=== PATIENT | female | born 1945 | race Caucasian/White ===

== ENCOUNTER → 2017-05-22 | Outpatient (CLI) | payer MEDICARE, OTHER ==
[~2017-05-22] MED LIST: ACEB200C PO; ALEN70TA47 PO; ATOR40TA70 PO; CHOL100061 PO; LISI1TAB6 PO; POTA99TA15 PO; ZINC50TA49 PO
--- NOTE | 2017-05-22 19:39 | Diagnostic Imaging Report ---
Bilateral screening mammogram 2D views with tomosynthesis The current study was also evaluated with a Computer Aided Detection (CAD) system. Indication: Screening. No current complaints stated on the questionnaire. COMPARISON: 05/20/16 FINDINGS: The breasts are composed of scattered fibroglandular densities. There is a stable nodule in the inferior aspect of the left breast from multiple prior exams. Similarly stable nodule in the inferior aspect of the right breast is also seen. Allowing for technique and positional differences, no suspicious change is seen. IMPRESSION: No significant change. ACR BI-RADS Category 2: Benign findings. Result letter will be mailed to the patient. Note: At least 10% of breast cancer is not imaged by mammography. Dictated by: Dictated on workstation # [id number]
== END ==
LOC: RAD 09:58
PROVIDERS: ATTEND Internal Medicine
DX: Z12.31 Encounter for screening mammogram for malignant neoplasm of breast (principal)
CPT/HCPCS: 77067

== ENCOUNTER → 2017-07-04 | Outpatient (CLI) | payer MEDICARE, OTHER ==
[~2017-07-04] MED LIST changes: +GADOBUTROL 7.5 MMOL/7.5 ML (GADAVIST) VIAL IV ONE
[2017-07-04 11:02] LABS: BLOOD UREA NITROGEN 11 MG/DL (7-18); BUN/CREATININE RATIO 14; CREATININE SERUM 0.79 MG/DL (0.60-1.30); GFR ESTIMATED > 60
--- NOTE | 2017-07-04 14:59 | Diagnostic Imaging Report ---
EXAMINATION: Multiplanar, multisequence MRI of the brain and orbits performed without and with intravenous contrast. INDICATION: Vision loss. 7 mL of Omnipaque 350 is administered intravenously. FINDINGS: There is no diffusion restriction to suggest an acute infarct or other diffusion abnormality. The brain parenchyma demonstrate mild periventricular and deep white matter T2 hyperintense signal abnormality compatible with chronic microvascular ischemic changes with no edema or enhancing lesion identified. There is no hydrocephalus. No extra-axial fluid collection is seen. The pituitary gland is normal in size. No hypothalamic or pineal region mass. No hydrocephalus. The orbits, the extraocular muscles and the optic nerves and the globes appear symmetric with no definite abnormality identified on the thin section images through the orbits. IMPRESSION: No acute infarct, enhancing mass or significant abnormality identified in the orbits. Dictated by: Dictated on workstation # [id number]
== END ==
LOC: RAD 10:03
PROVIDERS: ATTEND Internal Medicine
DX: H54.7 Unspecified visual loss (principal)
CPT/HCPCS: 36415; 70553; 82565; 84520

== ENCOUNTER 2017-12-06 05:36 | Outpatient (CLI) | payer MEDICARE, OTHER ==
[~2017-12-06] VITALS: Ht 170.2 cm; Wt 62.6 kg
[~2017-12-06 05:36] MED LIST changes: -GADOBUTROL 7.5 MMOL/7.5 ML (GADAVIST) VIAL IV ONE
[2017-12-06] MEDS ORDERED: LISI1TAB6 PO (13:32)
[2017-12-06] MEDS ORDERED: ALEN70TA47 PO (13:32)
[2017-12-06] MEDS ORDERED: POTA99TA17 PO (13:32)
[2017-12-06] MEDS ORDERED: ATOR80TA76 PO (13:32)
[2017-12-06] MEDS ORDERED: ZINC50TA51 PO (13:32)
[2017-12-06] MEDS ORDERED: CHOL10003 PO (13:32)
== END 2017-12-06 13:40 ==
LOC: PREOP 05:36
PROVIDERS: ATTEND Surgery
DX: Z01.818 Encounter for other preprocedural examination (principal); Z09 Encounter for follow-up examination after completed treatment for conditions other than malignant neoplasm; Z86.010 Personal history of colon polyps

== ENCOUNTER 2018-01-01 07:35 | Day surgery (SDC) | payer MEDICARE, OTHER ==
[~2018-01-01] VITALS: Ht 170.2 cm; Wt 62.6 kg
[~2018-01-01 07:35] MED LIST changes: +ATOR80TA76 PO; +CHOL10003 PO; +POTA99TA17 PO; +ZINC50TA51 PO
[2018-01-01] MEDS ORDERED: NS IV 500 ML 500 ML IV PRN (07:46)
[2018-01-01] MEDS ORDERED: NS IV 500 ML 500 ML ONE (07:49)
[2018-01-01 08:01] VITALS: BP 154/95
--- NOTE | 2018-01-01 09:02 | History & Physicial ---
History of Present Illness History of Present Illness Reason for visit/HPI to undergo surveillance colonoscopy. Previous history of adenomatous polyps Date of Admission 01/01/18 Date Seen by Provider: Jan 01, 2018 Time Seen by Provider: 09:00 I consulted on this patient on 01/01/18 09:00 Attending Physician Aruna Yi MD Admitting Physician Nikko Hamm MD Consult Allergies and Home Medications Allergies Coded Allergies: No Known Drug Allergies (Unverified , 02/21/11) Home Medications Alendronate Sodium 70 Mg Tablet, 70 MG PO WEEK, (Reported) Atorvastatin Calcium 80 Mg Tablet, 40 MG PO HS, (Reported) TAKE 1/2 OF 80MG TAB Cholecalciferol (Vitamin D3) 1,000 Unit Tablet, 1,000 UNIT PO DAILY, (Reported) Lisinopril/Hydrochlorothiazide 1 Each Tablet, 1 EACH PO DAILY, (Reported) Potassium Gluconate 99 Mg Tablet, 99 MG PO DAILY, (Reported) Patient Home Medication List Home Medication List Reviewed: Yes Past Hapgnuq-Tsnuhe-Ypmtqj Hx Patient Social History Marrital Status: Employed/Student: retired Alcohol Use: Denies Use Recreational Drug Use: No Smoking Status: Never a Smoker Recent Foreign Travel: No Contact w/other who traveled: No Recent Hopitalizations: No Recent Infectious Disease Expo: No Immunizations Up To Date Date of Pneumonia Vaccine: Jul 31, 2012 Seasonal Allergies Seasonal Allergies: Yes Respiratory No Cardiovascular Yes High Cholesterol, Hypertension Neurological No Gastrointestinal No Musculoskeletal Yes Osteoporosis Endocrine History of Endocrine Disorders: No HEENT History of HEENT Disorders: No Constitutional: no symptoms reported EENTM: no symptoms reported Respiratory: no symptoms reported Cardiovascular: no symptoms reported Gastrointestinal: no symptoms reported Genitourinary: no symptoms reported Musculoskeletal: back pain Skin: no symptoms reported Psychiatric/Neurological: No Symptoms Reported Physical Exam Vital Signs Vital Signs - First Documented 01/01/18 08:01 Temp 97.5 Pulse 73 Resp 16 B/P (MAP) 154/95 (114) Pulse Ox 92 O2 Delivery Room Air Capillary Refill : General Appearance: No Apparent Distress Neck: Normal Inspection Respiratory: Lungs Clear Cardiovascular: Regular Rate, Rhythm Gastrointestinal: Non Tender, Soft Rectal: Deferred Extremity: Normal Inspection Neurologic/Psychiatric: Alert, Oriented x3 Skin: Warm/Dry Assessment/Plan Assessment and Plan lady with a personal history of adenomatous polyps. 4 surveillance colonoscopy. Admission Diagnosis Admission Status: Other (Outpt Proc) ARUNA YI MD Jan 01, 2018 09:02
--- NOTE | 2018-01-01 09:03 | Conscious Sedation/ASA ---
Conscious Sedation Pre-Proced Time Reviewed: 09:02 ASA Class: 2 Airway Mallampati Classification: ([place] appropriate class) I. II. III, IV Lungs Heart ASA score ASA 1: a normal healthy patient ASA 2: a patient with a mild systemic disease (mid diabetes, controlled hypertension, obesity ASA 3: a patient with a severe systemic disease that limits activity (angina , COPD, prior Myocardial infarction) ASA 4: a patient with an incapacitating disease that is a constant threat to life (CHF, renal failure) ASA 5: a moribund patient not expected to survive 24 hrs. (ruptured aneurysm) ASA 6: a declared brain patient whose organs are being harvested. For emergent operations, add the letter E after the classification Grade 1 Sedation Plan: Discussed options with patient/fam Note The patient is an appropriate candidate to undergo the planned procedure, sedation, and anesthesia. The patient immediately re-assessed prior to indication. ARUNA YI MD Jan 01, 2018 09:02
[2018-01-01] MEDS: fentaNYL INJECTION 100 MCG/2 ML AMP IVP PRN ×2 (09:35→09:38)
[2018-01-01] MEDS ORDERED: fentaNYL INJECTION 100 MCG/2 ML AMP ONE (09:36)
[2018-01-01] MEDS: MIDAZOLAM 2 MG/2 ML (VERSED) VIAL IVP PRN ×2 (09:36→09:39)
[2018-01-01] MEDS ORDERED: MIDAZOLAM 2 MG/2 ML (VERSED) VIAL ONE ×3 (09:37)
--- NOTE | 2018-01-01 09:54 | Endo Procedure Record ---
Endo Procedure Report Date of Procedure Last Colonoscopy: Yes (2014) Jan 01, 2018 Surgeon (s) ARUNA YI MD Post Procedure/Op Diagnosis sigmoid diverticulosis Procedure Performed colonoscopy to cecum Description of Procedure Anesthesia Type: Conscious Sedation Specimen(s) collected/removed no specimen Description of the Procedure Indication for the procedure: This lady came in for surveillance colonoscopy. In 2014, she was found to have an adenomatous polyp informed consent was obtained after reviewing the procedure in detail. Description of the procedure: She was placed in left lateral decubitus position and her vital signs were monitored. Conscious sedation was achieved using Versed and fentanyl. Digital rectal examination was unremarkable. The colonoscope was then introduced in the rectum and advanced all the way up to the cecum. It was then withdrawn slowly and the mucosa examined in a systematic fashion. Finding: Sigmoid diverticulosis. No recurrent polyps were found She tolerated the procedure well and was taken back to the nursing area in a stable condition. Impression: Surveillance colonoscopy. No recurrent polyps. Recommend repeating in 5 years Copy Copies To 1: LALO CEJA MD, XAVIER M MD Jan 01, 2018 09:54
--- NOTE | 2018-01-01 09:55 | Discharge Inst-Simple/Standard ---
Discharge Inst-Standard Discharge Medications New, Converted or Re-Newed RX: Other Patient Instructions/Follow Up Plan of Care/Instructions/FU: repeat colonoscopy in 5 years Activity as Tolerated: Yes Discharge Diet: No Restrictions ARUNA YI MD Jan 01, 2018 09:55
[2018-01-01 10:15] VITALS: BP 154/95
[2018-01-01 10:45] VITALS: BP 153/90
[2018-01-01 10:50] VITALS: BP 153/90
== END 2018-01-01 10:45 | disposition home or self-care (01) ==
LOC: ENDO 07:35
PROVIDERS: ATTEND Surgery
DX: K57.30 Diverticulosis of large intestine without perforation or abscess without bleeding (principal); Z86.010 Personal history of colon polyps; E78.00 Pure hypercholesterolemia, unspecified; I10 Essential (primary) hypertension; M81.0 Age-related osteoporosis without current pathological fracture

== ENCOUNTER → 2018-05-08 | Outpatient (CLI) | payer MEDICARE, OTHER ==
--- NOTE | 2018-05-08 12:54 | Diagnostic Imaging Report ---
Indication: Screening. The current study was also evaluated with a Computer Aided Detection (CAD) system. 3-D tomosynthesis was also performed and reviewed. Comparison made with prior examination from 05/22/2017 back to 04/20/2012. Findings: There are scattered fibroglandular densities bilaterally. There are unchanged nodular densities in the medial aspect of both breasts. There are scattered benign type calcifications. There is no new dominant mass, spiculated lesion or suspicious calcification identified. Impression: Category 2 benign. ACR BI-RADS Category 2: Benign findings. Result letter will be mailed to the patient. Note: At least 10% of breast cancer is not imaged by mammography. Dictated by: Dictated on workstation # [id number]
== END ==
LOC: RAD 09:45
PROVIDERS: ATTEND Internal Medicine
DX: Z12.31 Encounter for screening mammogram for malignant neoplasm of breast (principal)
CPT/HCPCS: 77067

== ENCOUNTER 2018-09-26 13:20 | Outpatient (CLI) | payer MEDICARE, OTHER ==
[~2018-09-26] VITALS: Ht 170.2 cm; Wt 62.6 kg
[~2018-09-26 13:20] MED LIST changes: +ALEN70TA5 PO
== END 2018-09-26 13:33 ==
LOC: PREOP 13:20
PROVIDERS: ATTEND Surgery
DX: Z01.818 Encounter for other preprocedural examination (principal)

== ENCOUNTER 2018-10-01 09:12 | Day surgery (SDC) | payer MEDICARE, OTHER ==
[~2018-10-01] VITALS: Ht 170.2 cm; Wt 62.6 kg
[2018-10-01] MEDS ORDERED: NS IV 500 ML 500 ML ONE (09:19)
[2018-10-01 09:30] VITALS: BP 170/100
[2018-10-01] MEDS ORDERED: NS IV 500 ML 500 ML IV PRN (09:52)
[2018-10-01] MEDS ORDERED: fentaNYL INJECTION 100 MCG/2 ML AMP IVP ONE (10:00)
[2018-10-01] MEDS ORDERED: MIDAZOLAM 2 MG/2 ML (VERSED) VIAL IVP ONE (10:00)
[2018-10-01] MEDS ORDERED: HURRICAINE EXT TUBE (BENZOCAINE) XX PRN (10:00)
--- NOTE | 2018-10-01 10:11 | History & Physicial ---
History of Present Illness History of Present Illness Reason for visit/HPI to undergo an upper endoscopy regarding symptoms of gastroesophageal reflux Date of Admission 10/01/18 Date Seen by a Provider: Oct 01, 2018 Time Seen by a Provider: 10:10 I consulted on this patient on 10/01/18 10:09 Attending Physician Aruna Yi MD Admitting Physician Nikko Hamm MD Consult Allergies and Home Medications Allergies Coded Allergies: No Known Drug Allergies (Unverified , 02/21/11) Home Medications Alendronate Sodium 70 Mg Tablet, 70 MG PO WEEK, (Reported) Atorvastatin Calcium 80 Mg Tablet, 40 MG PO HS, (Reported) TAKE 1/2 OF 80MG TAB Cholecalciferol (Vitamin D3) 1,000 Unit Tablet, 1,000 UNIT PO DAILY, (Reported) Lisinopril/Hydrochlorothiazide 1 Each Tablet, 1 EACH PO DAILY, (Reported) Potassium Gluconate 99 Mg Tablet, 99 MG PO DAILY, (Reported) Patient Home Medication List Home Medication List Reviewed: Yes Past Zudcvwv-Xfackw-Ozygep Hx Patient Social History Alcohol Use: Denies Use Recreational Drug Use: No Smoking Status: Never a Smoker 2nd Hand Smoke Exposure: No Recent Foreign Travel: No Contact w/other who traveled: No Recent Hopitalizations: No Immunizations Up To Date Date of Pneumonia Vaccine: Jul 31, 2012 Date of Influenza Vaccine: Apr 30, 2018 Seasonal Allergies Seasonal Allergies: Yes Surgeries No Respiratory No Cardiovascular Yes High Cholesterol, Hypertension Neurological No Genitourinary No Gastrointestinal Yes Gastroesophageal Reflux Musculoskeletal Yes Osteoporosis Endocrine History of Endocrine Disorders: No HEENT History of HEENT Disorders: No Cancer No Psychosocial History of Psychiatric Problem: No Integumentary History of Skin or Integumenta: No Blood Transfusions History of Blood Disorders: No Review of Systems Constitutional: no symptoms reported EENTM: no symptoms reported Respiratory: no symptoms reported Cardiovascular: no symptoms reported Gastrointestinal: see HPI Genitourinary: no symptoms reported Musculoskeletal: no symptoms reported Skin: no symptoms reported Psychiatric/Neurological: No Symptoms Reported Physical Exam Vital Signs Vital Signs - First Documented 10/01/18 09:30 Temp 97.2 Pulse 66 Resp 20 B/P (MAP) 170/100 (123) Pulse Ox 96 O2 Delivery Room Air Capillary Refill : Height, Weight, BMI Height: 5'7.00" Weight: 138lbs. 0.0oz. [id number]; 21.6 BMI Method: General Appearance: No Apparent Distress Neck: Normal Inspection Respiratory: Lungs Clear Cardiovascular: Regular Rate, Rhythm Gastrointestinal: Non Tender, Soft Extremity: Normal Inspection Skin: Warm/Dry Assessment/Plan Assessment and Plan lady with symptoms of gastroesophageal reflux. For upper endoscopy Admission Diagnosis Admission Status: Other (Outpt Proc) ARUNA YI MD Oct 01, 2018 10:11
--- NOTE | 2018-10-01 10:11 | Conscious Sedation/ASA ---
Conscious Sedation Pre-Proced Time 10:11 ASA Score 2 For ASA 3 and 4: Consider anesthesia and medical clearance. Also, for patients with a history of failed moderate sedation consider anesthesia. Airway Lungs Heart ASA score ASA 1: a normal healthy patient ASA 2: a patient with a mild systemic disease (mid diabetes, controlled hypertension, obesity ASA 3: a patient with a severe systemic disease that limits activity (angina , COPD, prior Myocardial infarction) ASA 4: a patient with an incapacitating disease that is a constant threat to life (CHF, renal failure) ASA 5: a moribund patient not expected to survive 24 hrs. (ruptured aneurysm) ASA 6: a declared brain- patient whose organs are being harvested. For emergent operations, add the letter E after the classification Mallampati Classification Grade 1 Sedation Plan Discussed options with patient/fam The patient is an appropriate candidate to undergo the planned procedure, sedation, and anesthesia. The patient immediately re-assessed prior to indication. ARUNA YI MD Oct 01, 2018 10:11
[2018-10-01] MEDS ORDERED: fentaNYL INJECTION 100 MCG/2 ML AMP ONE (11:02)
[2018-10-01] MEDS ORDERED: MIDAZOLAM 2 MG/2 ML (VERSED) VIAL ONE ×2 (11:03)
[2018-10-01] MEDS ORDERED: HURRICAINE EXT TUBE (BENZOCAINE) ONE (11:03)
--- NOTE | 2018-10-01 11:34 | Endo Procedure Record ---
Endo Procedure Report Date of Procedure Last Colonoscopy: Yes (01/01/18) Oct 01, 2018 Surgeon (s) ARUNA YI MD Post Procedure/Op Diagnosis tortuous esophagus with a distal, concentric stricture Distal gastritis Procedure Performed EGD with antral biopsy for H. pylori Balloon dilatation Description of Procedure Anesthesia Type: Conscious Sedation Specimen(s) collected/removed antral mucosa for H. pylori Description of the Procedure Indication for the procedure: This lady came in for an upper endoscopy to evaluate symptoms of reflux disease and intermittent dysphagia. Informed consent was obtained after reviewing the procedure in detail. Description of the procedure: She was placed in left lateral decubitus position and her vital signs were monitored. Conscious sedation was achieved using Versed and fentanyl. The flexible gastroscope was then introduced down the esophagus, past the stomach, into the proximal duodenum. Findings: Esophagus: Quite tortuous with a distal, smooth, concentric stricture with an associated hiatal hernia. The stricture was dilated to 18 mm using a balloon. Stomach: Mild distal gastritis. Biopsy for H. pylori was obtained. Duodenum: Normal She tolerated the procedure well and was taken back to the nursing area in a stable condition. Impression: Symptoms of reflux with intermittent dysphagia. Tortuous esophagus with a stricture. Balloon dilatation completed. H. pylori status pending. Copy Copies To 1: LALO CEJA MD, XAVIER M MD Oct 01, 2018 11:34
--- NOTE | 2018-10-01 11:36 | Discharge Inst-Simple/Standard ---
Discharge Inst-Standard Discharge Medications New, Converted or Re-Newed RX: Other Patient Instructions/Follow Up Plan of Care/Instructions/FU: follow-up with Dr. Hamm as needed Activity as Tolerated: Yes Discharge Diet: No Restrictions ARUNA YI MD Oct 01, 2018 11:36
[2018-10-01 11:50] VITALS: BP 170/85
[2018-10-01 12:30] VITALS: BP 170/85
[2018-10-01 13:05] VITALS: BP 170/85
== END 2018-10-01 13:10 | disposition home or self-care (01) ==
LOC: ENDO 09:12
PROVIDERS: ATTEND Surgery
DX: K22.2 Esophageal obstruction (principal); K44.9 Diaphragmatic hernia without obstruction or gangrene; K29.70 Gastritis, unspecified, without bleeding; E78.00 Pure hypercholesterolemia, unspecified; I10 Essential (primary) hypertension; K21.9 Gastro-esophageal reflux disease without esophagitis; M81.0 Age-related osteoporosis without current pathological fracture; Z79.899 Other long term (current) drug therapy

== ENCOUNTER → 2019-05-28 | Outpatient (CLI) | payer MEDICARE, OTHER ==
--- NOTE | 2019-05-28 12:34 | Diagnostic Imaging Report ---
INDICATION: Routine screening. COMPARISON: Comparison is made with prior mammograms from 05/08/2018 and 05/22/2017. TECHNIQUE: 2-D and 3-D bilateral screening mammography was performed. The current study was also evaluated with a Computer Aided Detection (CAD) system. 3-D tomosynthesis was also performed and reviewed. FINDINGS: Scattered fibroglandular densities are identified bilaterally. Benign calcifications scattered throughout both breasts are again noted. Nodular densities in both breasts are stable. No new mass or malignant-appearing microcalcifications are seen. Axillae are unremarkable. IMPRESSION: No mammographic features suspicious for malignancy are identified. ACR BI-RADS Category 2: Benign findings. Result letter will be mailed to the patient. Note: At least 10% of breast cancer is not imaged by mammography. Dictated by: Dictated on workstation # [id number]
== END ==
LOC: RAD 07:02
PROVIDERS: ATTEND Internal Medicine
DX: Z12.31 Encounter for screening mammogram for malignant neoplasm of breast (principal)
CPT/HCPCS: 77067

== ENCOUNTER → 2020-05-29 | Outpatient (CLI) | payer MEDICARE, OTHER ==
[~2020-05-29] MED LIST changes: -ALEN70TA5 PO; +ALEN70TA69 PO; +LISI1TAB29 PO
--- NOTE | 2020-05-29 09:38 | Diagnostic Imaging Report ---
Digital mammogram. Bilateral screening This study was compared to the prior exams of 05/28/2017, 05/08/2018 and 05/22/2017. At this time there are no current complaints. The current study was also evaluated with a Computer Aided Detection (CAD) system. FINDINGS: There are scattered fibroglandular densities in both breasts which could obscure a lesion. Overall, there does not appear to have been any significant change when compared to the prior exam. No primary or secondary sign of malignancy is noted. IMPRESSION: There is no radiographic evidence for malignancy ACR BI-RADS Category 1: Negative. Result letter will be mailed to the patient. Note: At least 10% of breast cancer is not imaged by mammography. Dictated by: Dictated on workstation # [id number]
== END ==
LOC: RAD 08:15
PROVIDERS: ATTEND Internal Medicine
DX: Z12.31 Encounter for screening mammogram for malignant neoplasm of breast (principal)
CPT/HCPCS: 77063; 77067

== ENCOUNTER → 2021-03-31 | Outpatient (CLI) | payer MEDICARE, OTHER ==
[~2021-03-31] MED LIST changes: -ALEN70TA69 PO; +ALEN70TA80 PO
== END ==
LOC: LABNPT 06:13
PROVIDERS: ATTEND Internal Medicine
DX: R11.0 Nausea (principal); R68.83 Chills (without fever); R43.9 Unspecified disturbances of smell and taste

== ENCOUNTER → 2021-04-22 | Outpatient (CLI) | payer MEDICARE, OTHER ==
[~2021-04-22] MED LIST changes: +HOLD METFORMIN - RECEIVED CONTRAST 20 ML VIAL IV SCH; +IOHEXOL 350 MG/ML 100 ML (OMNIPAQUE 350) VIAL IV ONE; +NS 100 ML (IVPB) BAG IV ONE
[2021-04-22 14:19] LABS: HEMATOCRIT 45 % (35-52); HEMOGLOBIN 13.6 g/dL (11.5-16.0); MEAN CORPUSCULAR HEMOGLOBIN 25 pg (25-34); MEAN CORPUSCULAR HGB CONC 31 g/dL (32-36); MEAN CORPUSCULAR VOLUME 82 fL (80-99); MEAN PLATELET VOLUME 9.7 fL (9.0-12.2); PLATELET COUNT 304 10^3/uL (130-400); WHITE BLOOD COUNT 6.5 10^3/uL (4.3-11.0)
[2021-04-22 14:41] LABS: ALBUMIN 3.4 GM/DL (3.2-4.5); BILIRUBIN,TOTAL 0.7 MG/DL (0.1-1.0); CALCIUM 9.6 MG/DL (8.5-10.1); CREATININE SERUM 0.81 MG/DL (0.60-1.30); TOTAL PROTEIN 7.1 GM/DL (6.4-8.2)
--- NOTE | 2021-04-22 16:06 | Diagnostic Imaging Report ---
PROCEDURE: CT chest and abdomen with contrast. TECHNIQUE: Multiple contiguous axial images were obtained through the chest and abdomen after the administration of intravenous contrast. Auto Exposure Controls were utilized during the CT exam to meet ALARA standards for radiation dose reduction. INDICATION: Left-sided pain, nausea. FINDINGS: The previous CT chest exam performed on 04/28/2008 noted several small vague densities in the right upper lobe and the left upper lobe. Those parenchymal densities are not visualized on this exam. There is no evidence for failure, pneumonia or for a pleural effusion. The heart size is within normal limits and stable when compared to the prior study. Coronary artery calcifications are noted. The aorta is not abnormally dilated and there is no sign of a dissection. The pulmonary arteries were not fully opacified but there is no definite defect within the pulmonary arteries to indicate a pulmonary embolus. There is no mediastinal or hilar adenopathy. The thyroid gland is not enlarged. There is a small 4 mm area of low density in the left lobe. This was not clearly evident on the prior exam. I suspect that this is a benign process. Even so, a nonemergent thyroid ultrasound exam would be recommended for further study. There is no obvious breast mass. The images through the abdomen and pelvis show multiple low density masses throughout the spleen. The spleen is also enlarged at 14.2 x 6.6 x 11.9 cm in maximum longitudinal, transverse and AP dimensions. The appearance of the spleen has changed considerably since the prior exam and consequently these areas of abnormal density replacing much of the spleen should be considered secondary to a neoplastic disease until proven otherwise. In addition, there are multiple enlarged lymph nodes in the tyrese hepatis and periaortic region. Most of these nodes measure in the 3 cm range. There is also a 3.2 x 4.7 cm node in the periaortic region on the right. Consequently these findings should be considered secondary to neoplastic disease until proven otherwise. The liver appears fairly homogeneous. There is no sign of cholelithiasis or acute cholecystitis. The stomach is not well distended and difficult to assess. The adrenals, kidneys, aorta and inferior vena cava show no sign of an acute abnormality. There is no abdominal mass or free fluid collection noted. The bone windows show no sign of a fracture or of a destructive lesion. IMPRESSION: 1. In the interval since the prior exam, multiple low density masses have developed throughout the spleen and the spleen is now enlarged. There is also significant periaortic adenopathy. These findings should be considered secondary to a neoplastic disease until proven otherwise. If further imaging is desired, then PET CT would be recommended. An oncology consult. Should also be obtained. 2. There is no acute abnormality identified. 3. These results were discussed with Alayna Benites APRN. Dictated by: Dictated on workstation # [id number]
== END ==
LOC: RAD 13:59
PROVIDERS: ATTEND Nurse Practitioner Family
DX: R16.1 Splenomegaly, not elsewhere classified (principal); R59.0 Localized enlarged lymph nodes; R10.9 Unspecified abdominal pain; R11.0 Nausea; R63.4 Abnormal weight loss
CPT/HCPCS: 36415; 71260; 74160; 80053; 82150; 83690; 85027